=== PATIENT | female | born 1950 | race Caucasian/White ===

== ENCOUNTER 2017-01-15 03:31 | Emergency (ER) | payer OTHER ==
[2017-01-15 03:48] LABS: MANUAL DIFF NEEDED? NO
[2017-01-15] MEDS ORDERED: DUONEB (A & A) ONE (03:51)
[2017-01-15] MEDS ORDERED: DUONEB (A & A) INH ONE (03:51)
[2017-01-15 03:52] LABS: BASO% 0.3 % (0.0-0.8); EOS# 0.22 X1000 (0.0-0.7); EOS% 1.4 % (0.0-10.0); HEMATOCRIT 45.6 % (37.0-47.0); HEMOGLOBIN 14.9 g/dL (12.0-16.0); IMM GRAN# 0.05 X1000 (0.0-0.04); IMM GRAN% 0.3 % (0.0-0.5); LYMPH# 2.43 X1000 (1.2-3.4); LYMPH% 15.4 % (20.5-51.1); MCH 30.2 PG (27-31); MCHC 32.7 g/dL (33-37); MCV 92.3 FL (81-99); MONO# 0.75 X1000 (0.11-0.59); MONO% 4.8 % (1.7-9.3); MPV 9.8 FL (7.4-10.4); NEUT% 77.8 % (42.2-75.2); PLT 278 X1000 (130-400); RBC 4.94 XMIL (4.2-5.4)
--- NOTE | 2017-01-15 03:52 | PROVIDER DOCUMENTATION ---
HPI-Respiratory General - General Chief Complaint: Shortness of Breath Stated Complaint: CHILLS FOR SEVERAL WEEKS Time Seen by Provider: 01/15/17 03:34 Source: patient Allergies/Adverse Reactions: Patient Allergies Allergy/AdvReac Type Severity Reaction Status Date / Time No Known Allergies Allergy Verified 01/15/17 03:36 Home Medications: Home Medication List Medication Instructions Recorded Confirmed Last Taken Type Metformin [Glucophage] 1,000 mg PO BID 11/19/13 01/15/17 09/01/15 21:00 History SIMVAstatin [Zocor] 40 mg PO QHS 11/19/13 01/15/17 09/01/15 21:00 History Clopidogrel Bisulfate [Plavix] 75 mg PO DAILY 11/03/14 01/15/17 09/01/15 08:00 History Levothyroxine [Synthroid] 50 mcg PO QAM 11/03/14 01/15/17 09/01/15 08:00 History Quetiapine [Seroquel] 200 mg PO HS 11/03/14 01/15/17 09/01/15 21:00 History Furosemide [Lasix] 20 mg PO DAILY 06/24/15 01/15/17 09/01/15 08:00 History Cyanocobalamin/Salcaprozat Sod 1,000 mcg PO DAILY 09/02/15 01/15/17 09/01/15 08: 00 History [Eligen B12] Hydroxyzine 25 mg PO BID 09/02/15 01/15/17 09/01/15 21:00 History Rifaximin [Xifaxan] 550 mg PO TID 09/02/15 01/15/17 09/01/15 21:00 History Azithromycin [Zithromax Z-Devendra] 250 mg PO DIRECTED #1 pkg 01/15/17 Unknown Rx Doxycycline Monohydrate 100 mg PO BID #20 tablet 01/15/17 Unknown Rx - History of Present Illness-Resp Quality of Pain: reports: aching Severity in ED: reports: mild Onset/Duration: reports: unsure Timing: reports: still present Context: reports: recent URI Exposure: reports: allergen exposure, irritant gases exposure Cough Quality/Degree: reports: no cough Episode Frequency: no prior episodes Current Respiratory Medication Therapy: Initiated none Modifying Factors: improves with: nothing Associated Symptoms: reports: denies symptoms Similar Symptoms Previously?: Yes Recently seen or treated by another doctor?: Yes Review of Systems - Adult - REVIEW OF SYSTEMS - ADULT Constitutional: reports: no symptoms reported Eyes: reports: no symptoms reported Ears, Nose, Mouth & Throat: reports: no symptoms reported Cardiovascular: reports: no symptoms reported Respiratory: reports: no symptoms reported Gastrointestinal: reports: no symptoms reported Genitourinary: reports: no symptoms reported Musculoskeletal: reports: no symptoms reported Integumentary: reports: no symptoms reported Neurological: reports: no symptoms reported Psychiatric: reports: no symptoms reported Endocrine: reports: no symptoms reported Hematologic/Lymphatic: reports: no symptoms reported Allergic/Immunologic: reports: no symptoms reported All Other Systems: Reviewed and Negative Past History - Adult - PAST MEDICAL HISTORY-ADULT Review of Records: reports: Old Records Reviewed, Nursing Assessment Review, Medications Reviewed, Social history reviewed & non-contributory. Major Childhood Illnesses: reports: denies history Cardiovascular: reports: HTN, hyperlipidemia Respiratory: reports: asthma, COPD Gastrointestinal: reports: denies history Obstetrical/Gynecological: reports: denies history Genitourinary: reports: denies history Musculoskeletal: reports: denies history Neurological: reports: denies history Psychiatric: reports: anxiety, depression Endocrine/Immune: reports: Diabetes, thyroid disorder Other Conditions: reports: other cancer (breast) - PRIOR SURGERIES/PROCEDURES Surgical/Procedure History: reports: cholecystectomy, hysterectomy, BTL, tonsillectomy, other (mastectomy and lap band) - IMMUNIZATION STATUS Childhood Immunizations: See Nurse Assessment Flu Vaccine: See Nurse Assessment - FAMILY HISTORY Family History: reviewed, not pertinent Physical Exam-General - PHYSICAL EXAM-ADULT Initial Vital Signs Reviewed: Yes - CONSTITUTIONAL General Appearance: alert, moderate distress - EYES Eyes: anisocoria - HEAD, EARS, NOSE, MOUTH & THROAT HENMT: TMs normal - NECK Neck: non-tender - RESPIRATORY Respiratory: lungs clear - CARDIOVASCULAR Cardiovascular: normal peripheral pulses - CHEST (BREASTS) Chest/Breast: deferred - GASTROINTESTINAL (ABDOMEN) Abdominal Exam: normal bowel sounds - GENITOURINARY Female Genitalia/Pelvic Exam: deferred - LYMPHATIC Lymphatic: no adenopathy - MUSCULOSKELETAL Back Exam: normal inspection Extremity: normal range of motion - SKIN Integumentary: blanching - NEUROLOGIC 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 These instructions are being provided to you so you can have an understanding of how to care for yourself upon discharge. Upon discharge from the Emergency Department, you are responsible for making arrangements for follow-up care by a physician of your choice. Take all prescribed medications as directed. Return to the Emergency Department immediately for any new or worsening symptoms. You may call the Physician Referral phone number at [phone] to obtain a list of Physicians who are taking new patients. Prescriptions: Doxycycline Monohydrate 100 mg PO BID #20 tablet Azithromycin [Zithromax Z-Devendra] 250 mg PO DIRECTED #1 pkg Referrals: Missy Angel MD [Primary Care Provider] - Instructions: Chronic Obstructive Pulmonary Disease, Znin-[id number], Azithromycin tablets, Doxylamine tablets
[2017-01-15 04:32] LABS: AGAP 21; ALBUMIN 4.3 g/dL (3.5-5.0); ALKALINE PHOSPHATASE 58 U/L (32-104); BUN 20 mg/dL (8-22); CALCIUM 10.1 mg/dL (8.8-10.2); CHLORIDE 97 mmol/L (98-107); CK PROFILE 33 U/L (24-173); COSMO 290; GOT 13 U/L (10-30); GPT 14 U/L (10-36); MAGNESIUM 1.8 mg/dL (1.5-2.7); POTASSIUM 4.3 mmol/L (3.5-5.1); SODIUM 141 mmol/L (136-145); TCO2 23 mmol/L (25-35); TOTAL PROTEIN 7.5 g/dL (6.3-8.3)
[2017-01-15 04:56] LABS: INR 0.95 (0.86-1.15)
[2017-01-15 04:57] LABS: PTT PL 25.6 Seconds (22.6-43.9)
[2017-01-15 05:28] VITALS: BP 141/86
--- NOTE | 2017-01-15 06:07 | EKG Report ---
Test Performed on : 01/15/2017 02:52:24 AM Test Reason : CHEST PAIN Blood Pressure : / mmHG Vent. Rate : 109 BPM Atrial Rate : 109 BPM P-R Int : 160 ms QRS Dur : 094 ms QT Int : 336 ms P-R-T Axes : 009 -80 069 degrees QTc Int : 452 ms Sinus tachycardia. Left axis deviation Incomplete right bundle branch block Septal infarct (cited on or before 21-JUN-2013) Abnormal ECG When compared with ECG of 09-NOV-2014 07:22, LA interval has decreased Vent. rate has increased BY 57 BPM Incomplete right bundle branch block is now present Questionable change in initial forces of Septal leads Unconfirmed Result
--- NOTE | 2017-01-15 08:06 | Diag Imaging Result Document ---
PROCEDURE NAME: CHEST-2 VIEWS - 01/15/2017 FRONTAL AND LATERAL CHEST, TWO VIEWS: COMPARISON: Compared to 06/25/2015. FINDINGS: The lungs are well expanded. The heart is not enlarged. The vessels are not distended. No pleural effusions. There are infiltrates in the mid and lower right lung. Multiple surgical clips overlie the left chest and axilla. IMPRESSION: Right-sided pneumonia. Followup films recommended.
== END 2017-01-15 05:38 | disposition home or self-care (01) ==
LOC: P.ED 03:31
DX: J44.9 Chronic obstructive pulmonary disease, unspecified (principal); R06.02 Shortness of breath; I10 Essential (primary) hypertension; E78.5 Hyperlipidemia, unspecified; E11.9 Type 2 diabetes mellitus without complications; E07.9 Disorder of thyroid, unspecified; Z85.3 Personal history of malignant neoplasm of breast; R68.83 Chills (without fever); Z79.899 Other long term (current) drug therapy; F41.9 Anxiety disorder, unspecified; F32.9 Major depressive disorder, single episode, unspecified; Z90.10 Acquired absence of unspecified breast and nipple; Z98.84 Bariatric surgery status; Z79.02 Long term (current) use of antithrombotics/antiplatelets
CPT/HCPCS: 71020; 80053; 82550; 83735; 83880; 84484; 85025; 85610; 85730; 93005; 94640; 99285

== ENCOUNTER 2017-08-07 07:29 | Inpatient (IN) ==
[2017-08-07] MEDS ORDERED: DUONEB (A & A) INH ONE (07:58)
[2017-08-07 08:03] LABS: MANUAL DIFF NEEDED? NO
[2017-08-07 08:05] LABS: BASO% 0.2 % (0.0-0.8); EOS# 0.18 X1000 (0.0-0.7); EOS% 1.8 % (0.0-10.0); HEMATOCRIT 38.2 % (37.0-47.0); HEMOGLOBIN 12.2 g/dL (12.0-16.0); IMM GRAN# 0.03 X1000 (0.0-0.04); IMM GRAN% 0.3 % (0.0-0.5); LYMPH# 1.01 X1000 (1.2-3.4); LYMPH% 10.3 % (20.5-51.1); MCH 28.8 PG (27-31); MCHC 31.9 g/dL (33-37); MCV 90.1 FL (81-99); MONO# 0.54 X1000 (0.11-0.59); MONO% 5.5 % (1.7-9.3); NEUT% 81.9 % (42.2-75.2); PLT 223 X1000 (130-400); RBC 4.24 XMIL (4.2-5.4)
[2017-08-07 08:21] LABS: PTT PL 33.8 Seconds (22.6-43.9)
[2017-08-07 08:26] LABS: AGAP 12; ALBUMIN 3.4 g/dL (3.5-5.0); ALKALINE PHOSPHATASE 50 U/L (32-104); BUN 10 mg/dL (8-22); CALCIUM 8.8 mg/dL (8.8-10.2); CHLORIDE 98 mmol/L (98-107); COSMO 280; GOT 15 U/L (10-30); GPT 8 U/L (10-36); POTASSIUM 3.5 mmol/L (3.5-5.1); SODIUM 138 mmol/L (136-145); TCO2 28 mmol/L (25-35); TOTAL PROTEIN 7.2 g/dL (6.3-8.3)
[2017-08-07 08:27] LABS: CK PROFILE 706 U/L (24-173)
--- NOTE | 2017-08-07 08:30 | Diag Imaging Result Doc PS360 ---
CHEST-2 VIEWS - 08/07/2017 INDICATION: Fever TECHNIQUE: COMPARISON: 08/06/2017 FINDINGS: Lung volumes are much lower. There is stable to worsening worsening right lower lobe infiltrate. Pulmonary vascularity is somewhat distended. Heart size is top normal. IMPRESSION: Lower lung volumes, otherwise no change from prior. Right lower lobe infiltrate suggesting pneumonia. Electronically signed by Artie Unger 08/07/2017 8:28 AM
--- NOTE | 2017-08-07 08:37 | Diag Imaging Result Doc PS360 ---
EXAM : CT HEAD/C-SPINE W/O CONTRAST HISTORY: Fall TECHNIQUE: CT brain without contrast. CT cervical spine without contrast. Dose reduction protocol. COMPARISON: Brain is compared to 04/19/2015 FINDINGS: Head: No parenchymal hemorrhage. No epidural or subdural hematoma. No subarachnoid hemorrhage. No mass identified on this noncontrasted exam. No hydrocephalus. Mild atrophy. No sinus opacification. Cervical spine: There is scoliosis to the cervical spine. No precervical soft tissue swelling. No subluxation. No fracture. IMPRESSION: Head: No hemorrhage. No injury. Cervical spine: No acute fracture. Electronically signed by Ross Gregory 08/07/2017 8:35 AM
[2017-08-07 08:41] LABS: BE 7.7 mmoll (-3.0-3.0); BLOOD TYPE ARTERIAL; DRAW SITE R RADIAL; O2(CT) 14.7 mL/dL (15.0-23.0); SAMPLE BLOOD; SAO2 88.6 % (95.0-100.0); THB 12.3 g/dL (11.5-17.4)
[2017-08-07] MEDS ORDERED: ZOSYN 3.375 GM in NS 50 ML IV ONE (08:42)
[2017-08-07] MEDS ORDERED: VANCOMYCIN 1 GM/NS 1 GM/250 ML IVPB IV ONE ×2 (08:42→14:00)
[2017-08-07 08:45] LABS: PCO2(98.6) 55 mmHg (35-45); PO2(98.6) 46 mmHg (60-100)
[2017-08-07 08:46] LABS: ALLEN TEST YES; MODALITY CANNULA
--- NOTE | 2017-08-07 08:46 | PROVIDER DOCUMENTATION ---
HPI-Respiratory General - General Chief Complaint: Fever Stated Complaint: Fever/Weak/Fall/Dx Penumonia Time Seen by Provider: 08/07/17 07:35 Source: patient, family Allergies/Adverse Reactions: Patient Allergies Allergy/AdvReac Type Severity Reaction Status Date / Time No Known Allergies Allergy Verified 08/07/17 07:35 Home Medications: Home Medication List Medication Instructions Recorded Confirmed Last Taken Type Metformin [Glucophage] 1,000 mg PO BID 11/19/13 01/15/17 09/01/15 21:00 History SIMVAstatin [Zocor] 40 mg PO QHS 11/19/13 01/15/17 09/01/15 21:00 History Clopidogrel Bisulfate [Plavix] 75 mg PO DAILY 11/03/14 01/15/17 09/01/15 08:00 History Levothyroxine [Synthroid] 50 mcg PO QAM 11/03/14 01/15/17 09/01/15 08:00 History Quetiapine [Seroquel] 200 mg PO HS 11/03/14 01/15/17 09/01/15 21:00 History Furosemide [Lasix] 20 mg PO DAILY 06/24/15 01/15/17 09/01/15 08:00 History Cyanocobalamin/Salcaprozat Sod 1,000 mcg PO DAILY 09/02/15 01/15/17 09/01/15 08: 00 History [Eligen B12] Hydroxyzine 25 mg PO BID 09/02/15 01/15/17 09/01/15 21:00 History Rifaximin [Xifaxan] 550 mg PO TID 09/02/15 01/15/17 09/01/15 21:00 History Azithromycin [Zithromax Z-Devendra] 250 mg PO DIRECTED #1 pkg 01/15/17 Unknown Rx Doxycycline Monohydrate 100 mg PO BID #20 tablet 01/15/17 Unknown Rx Benzonatate [Tessalon Perle] 100 mg PO Q8-12H PRN PRN #30 08/06/17 Unknown Rx capsule - History of Present Illness-Resp Nature of Presenting Problem: Reports pt was treated with oral Abx for PNA and she was seen here yesterday at ER for it as well. Pt states that she completed the Abx, but she could not tell me the name of the Abx. Reports pt had fever with Tmax of 101 at home last night. SOB and fell with possible LOC. Pt is on Plavax. Reports possible heag injury during the fall, but could not tell details. Pt uses home O2 and lives with her brother. Pt looks lethargic, but answer all questions and follow all commands. Quality of Pain: reports: aching Severity in ED: reports: moderate Onset/Duration: reports: last night Timing: reports: still present, constant Context: reports: other (See above) Cough Quality/Degree: reports: moderate Episode Frequency: frequent episodes Current Respiratory Medication Therapy: Initiated albuterol/atrovent inhale, Initiated steroid inhaler, Initiated albuterol Modifying Factors: improves with: oxygen, rest Associated Symptoms: reports: cough, fever/chills, shortness of breath, short of breath Similar Symptoms Previously?: Yes Recently seen or treated by another doctor?: Yes Review of Systems - Adult - REVIEW OF SYSTEMS - ADULT Constitutional: reports: see HPI, fever, fatique Ears, Nose, Mouth & Throat: reports: see HPI, throat pain Cardiovascular: reports: no symptoms reported Respiratory: reports: see HPI, cough, shortness of breath Gastrointestinal: reports: no symptoms reported Genitourinary: reports: no symptoms reported Musculoskeletal: reports: no symptoms reported Integumentary: reports: see HPI Neurological: reports: see HPI, loss of balance, syncope. denies: dizziness/ vertigo, headache/migraines, seizure, slurred speech, tremors All Other Systems: Reviewed and Negative Past History - Adult - PAST MEDICAL HISTORY-ADULT Review of Records: reports: Old Records Reviewed, Nursing Assessment Review, Medications Reviewed, Social history reviewed & non-contributory. Major Childhood Illnesses: reports: denies history Cardiovascular: reports: HTN, hyperlipidemia Respiratory: reports: asthma, COPD Gastrointestinal: reports: denies history Obstetrical/Gynecological: reports: denies history Genitourinary: reports: denies history Musculoskeletal: reports: denies history Neurological: reports: denies history Psychiatric: reports: anxiety, depression Endocrine/Immune: reports: Diabetes, thyroid disorder Other Conditions: reports: other cancer (breast) - PRIOR SURGERIES/PROCEDURES Surgical/Procedure History: reports: cholecystectomy, hysterectomy, BTL, tonsillectomy, other (mastectomy and lap band) - IMMUNIZATION STATUS Childhood Immunizations: See Nurse Assessment Flu Vaccine: See Nurse Assessment - FAMILY HISTORY Family History: reviewed, not pertinent - SOCIAL HISTORY Smoking: denies Substance Use: none/never Alcohol Use Frequency: never Physical Exam-General - PHYSICAL EXAM-ADULT Initial Vital Signs Reviewed: Yes - CONSTITUTIONAL General Appearance: appears well, alert, no apparent distress - EYES Eyes: PERRL/EOMI, pink conjunctivae - HEAD, EARS, NOSE, MOUTH & THROAT HENMT: normocephalic/atraumatic, moist mucous membranes, normal ENT inspection - NECK Neck: non-tender, full range of motion, supple - RESPIRATORY Respiratory: chest non-tender, no pleuratic chest pain, no respiratory distress , no accessory muscle use, decreased breath sounds, wheezing (R> L). negative: crackles, rales, rhonchi - CARDIOVASCULAR Cardiovascular: normal peripheral pulses, regular rate, rhythm - GASTROINTESTINAL (ABDOMEN) Abdominal Exam: normal bowel sounds, non tender, soft, no organomegaly - MUSCULOSKELETAL Back Exam: normal inspection, no CVA tenderness Extremity: normal range of motion, non-tender, normal gait - SKIN Integumentary: normal color, normal turgor, warm/dry - PSYCHIATRIC Psych/Mental Status: normal mood/affect, normal thought content, normal thought process, oriented x 3 Progress - PLAN OF CARE/RESULTS Progress/Plan/Lab Results: Vital Signs - 8 hr 08/07/17 07:30 08/07/17 08:33 08/07/17 09:00 Temperature 99.7 F H 99.0 F Pulse Rate 87 80 81 Respiratory Rate 23 16 18 Blood Pressure 105/73 113/59 107/50 O2 Sat by Pulse Oximetry 90 L 89 L 92 L Laboratory Results - last 24 hr 08/07/17 08/07/17 08/07/17 07:48 07:48 07:48 WBC RBC Hgb Hct MCV MCH MCHC RDW Std Deviation Plt Count MPV Immature Gran % (Auto) Neut % (Auto) Lymph % (Auto) [place] % (Auto) Eos % (Auto) Baso % (Auto) Immature Gran # (Auto) Neut # (Auto) Lymph # (Auto) [place] # (Auto) Eos # (Auto) Baso # (Auto) PT INR APTT (Factor Assay) Specimen Type Sample Site pH pCO2 pO2 HCO3 Base Excess Oxyhemoglobin ABG O2 Sat (Calculated) ABG O2 Saturation ABG Carboxyhemoglobin ABG Methemoglobin Delmer Test A-a O2 Difference Total Hemoglobin Lactate Liter Flow Blood Gas Modality FiO2 % Sodium 138 Potassium 3.5 Chloride 98 Carbon Dioxide 28 Anion Gap 12 BUN 10 Creatinine 0.8 Estimated GFR/1.73 m2 > 60 BUN/Creatinine Ratio 13 Glucose 197 H Calculated Osmolality 280 Calcium 8.8 Magnesium Total Bilirubin 0.30 AST 15 ALT 8 L Alkaline Phosphatase 50 Creatine Kinase 706 H Creatine Kinase Index 0.8 CK-MB (CK-2) 5.43 H Troponin T < 0.010 [id number] Pept Total Protein 7.2 Albumin 3.4 L Globulin 4.0 Albumin/Globulin Ratio 1.0 Plasma Lactate 3.0 H Plasma/Serum Ethyl Alc 08/07/17 08/07/17 08/07/17 07:48 07:48 07:48 WBC 9.83 RBC 4.24 Hgb 12.2 Hct 38.2 MCV 90.1 MCH 28.8 MCHC 31.9 L RDW Std Deviation 15.5 H Plt Count 223 MPV 11.0 H Immature Gran % (Auto) 0.3 Neut % (Auto) 81.9 H Lymph % (Auto) 10.3 L [place] % (Auto) 5.5 Eos % (Auto) 1.8 Baso % (Auto) 0.2 Immature Gran # (Auto) 0.03 Neut # (Auto) 8.05 H Lymph # (Auto) 1.01 L [place] # (Auto) 0.54 Eos # (Auto) 0.18 Baso # (Auto) 0.02 PT 14.0 INR 1.00 APTT (Factor Assay) 33.8 Specimen Type Sample Site pH pCO2 pO2 HCO3 Base Excess Oxyhemoglobin ABG O2 Sat (Calculated) ABG O2 Saturation ABG Carboxyhemoglobin ABG Methemoglobin [place] Test A-a O2 Difference Total Hemoglobin Lactate Liter Flow Blood Gas Modality FiO2 % Sodium Potassium Chloride Carbon Dioxide Anion Gap BUN Creatinine Estimated GFR/1.73 m2 BUN/Creatinine Ratio Glucose Calculated Osmolality Calcium Magnesium Total Bilirubin AST ALT Alkaline Phosphatase Creatine Kinase Creatine Kinase Index CK-MB (CK-2) Troponin T [id number] Pept Total Protein Albumin Globulin Albumin/Globulin Ratio Plasma Lactate Plasma/Serum Ethyl Alc 08/07/17 08/07/17 08/07/17 07:48 07:48 08:14 WBC RBC Hgb Hct MCV MCH MCHC RDW Std Deviation Plt Count MPV Immature Gran % (Auto) Neut % (Auto) Lymph % (Auto) [place] % (Auto) Eos % (Auto) Baso % (Auto) Immature Gran # (Auto) Neut # (Auto) Lymph # (Auto) [place] # (Auto) Eos # (Auto) Baso # (Auto) PT INR APTT (Factor Assay) Specimen Type ARTERIAL Sample Site R RADIAL pH 7.40 pCO2 55 H* pO2 46 L* HCO3 30.6 H Base Excess 7.7 H Oxyhemoglobin 85.4 L* ABG O2 Sat (Calculated) 14.7 L ABG O2 Saturation 88.6 L ABG Carboxyhemoglobin 2.60 H ABG Methemoglobin 1.0 Delmer Test YES A-a O2 Difference 113.0 Total Hemoglobin 12.3 Lactate 1.60 Liter Flow 3.0 Blood Gas Modality CANNULA FiO2 % 32.0 Sodium Potassium Chloride Carbon Dioxide Anion Gap BUN Creatinine Estimated GFR/1.73 m2 BUN/Creatinine Ratio Glucose Calculated Osmolality Calcium Magnesium 1.6 Total Bilirubin AST ALT Alkaline Phosphatase Creatine Kinase Creatine Kinase Index CK-MB (CK-2) Troponin T [id number] Pept 204 Total Protein Albumin Globulin Albumin/Globulin Ratio Plasma Lactate Plasma/Serum Ethyl Alc Orders Category Date Time Status Cardiac Monitoring DIRECTED Care 08/07/17 07:36 Active Finger Stick Blood Sugar (ED) DIRECTED Care 08/07/17 07:36 Active Oxygen Therapy- ED Nursing DIRECTED Care 08/07/17 07:36 Active Saline Loc NOW Care 08/07/17 07:36 Active CHEST-2 VIEWS [RAD] Stat Exams 08/07/17 07:[address] HEAD/C-SPINE W/O CONTRAST [CT] Stat Exams 08/07/17 07:58 Completed ABG [RESP] Routine Lab 08/07/17 08:14 Completed ALCOHOL BLOOD Stat Lab 08/07/17 07:48 Completed BLOOD CULTURE [BLDCUL] Stat Lab 08/07/17 07:35 Ordered CBC WITH ELECTRONIC DIFF [HEME] Stat Lab 08/07/17 07:48 Completed CK PROFILE [SP CHEM] Stat Lab 08/07/17 07:48 Completed COMPREHENSIVE METABOLIC PANEL [CHEM] Stat Lab 08/07/17 07:48 Completed LACTATE, PLASMA [CHEM] Stat Lab 08/07/17 07:48 Completed MAGNESIUM [CHEM] Stat Lab 08/07/17 07:48 Completed PRO B-NATRIURETIC PEPTIDE Stat Lab 08/07/17 07:[address]IME WITH INR PL [COAG] Stat Lab 08/07/17 07:[address] [COAG] Stat Lab 08/07/17 07:48 Completed TROPONIN T Stat Lab 08/07/17 07:[address] W/POSS RFLX CULT [URINALYSIS] Stat Lab 08/07/17 07:36 Uncollected URINE DRUG SCREEN PL Stat Lab 08/07/17 07:36 Uncollected Albuterol 2.5MG/Ipratrop 0.5MG [Duoneb (A & A)] Med 08/07/17 07:58 Discontinued 3 ml INH NOW ONE Piperacillin/Tazobactam [Zosyn] 3.375 gm Med 08/07/17 08:42 Active 0.9% Sodium Chloride Inj [Ns] 50 ml IV NOW Vancomycin 1 gm/Ns Med 08/07/17 08:42 Active 1 gm in 250 ml IV NOW Aerosol Treatments Routine Oth 08/07/17 07:58 Active Aerosol Treatments Stat Oth 08/07/17 07:58 Active Pulse Oximetry Stat Oth 08/07/17 07:36 Active EKG [EKG] Stat Ther 08/07/17 07:36 Ordered Result Diagrams: 08/07/17 07:48 08/07/17 07:48 - XRAY 1 XRAY Study: Chest Impression: Abnormal XRAY Interpretation: RLL infiltrates - CONSULTS/PCP/HOSPITALIST Notification #1 *Consult/PCP/Hospitalist*: Dr. Kaufman Time Discussed: 09:11 Consult Disposition: Will see in ED, Admit Departure - Departure Date of Disposition Decision: 08/07/17 Time of Disposition Decision: 09:11 DIAGNOSIS: RLL pneumonia, Hypoxia Disposition: ADMITTED INPATIENT 09 Certified Medical Emergency: Emergent Condition: Stable Referrals and Follow-Ups: None,PCP [Primary Care Provider] - - Critical Care Note This patient required my direct & personal management of CC.: No Attestation - Physician/ JESÚS Attestation Patient care was provided by Advanced Practice Provider:: No The physician spent face to face time with patient:: Yes Advanced Practice Provider documentation review:: Supervising physician onsite and consulted in the evaluation and care of this patient. The physician did have a face to face encounter with the patient.
[2017-08-07 09:05] LABS: CK INDEX 0.8 (0.0-2.5); CK-MB 5.43 ng/mL (0.0-5.0)
--- NOTE | 2017-08-07 09:42 | EKG Report ---
Test Performed on : 08/07/2017 08:29:15 AM Test Reason : AMS Blood Pressure : / mmHG Vent. Rate : 082 BPM Atrial Rate : 082 BPM P-R Int : 158 ms QRS Dur : 102 ms QT Int : 418 ms P-R-T Axes : 015 -67 041 degrees QTc Int : 488 ms Normal sinus rhythm. Left axis deviation Nonspecific ST and T wave abnormality Prolonged QT Abnormal ECG When compared with ECG of 06-AUG-2017 09:55, (Unconfirmed) Incomplete right bundle branch block is no longer present Unconfirmed Result
--- NOTE | 2017-08-07 10:21 | ED EKG INTERP ---
This chart was entered by Tabatha Stewart Scribe, acting as scribe for Florina Resendiz MD. EKG Interpretation - EKG Time of EKG reading by physician:: 08:29 EKG Read and Signed by:: Florina Resendiz EKG Interpretation (*Must complete 3 of following elements*): Abnormal Rate: 82 Rhythm: nsr [place]: left ST Wave: non-specific ST changes Comments: nonspecific ST and T wave abnormality/prolonged QT Attestation - Physician/ JESÚS Attestation Patient care was provided by Advanced Practice Provider:: No The physician spent face to face time with patient:: Yes Advanced Practice Provider documentation review:: Supervising physician onsite and consulted in the evaluation and care of this patient. The physician did have a face to face encounter with the patient. This chart was documented by the indicated scribe, (Tabatha Stewart Scribe) and accurately reflects the services I performed and decisions made by me, Florina Resendiz MD, as attested by the provider's signature.
[2017-08-07] MEDS ORDERED: FLONASE NAS PRN (13:18)
[2017-08-07] MEDS ORDERED: VANCOMYCIN IV PER PHARMACY MISC SCH (13:30)
[2017-08-07] MEDS: ZOSYN 3.375 GM in NS 50 ML IV SCH ×2 (17:02→22:11)
[2017-08-07] MEDS: CARAFATE PO SCH ×2 (17:02→20:54)
[2017-08-07 17:45] LABS: URINE CULTURE PL NEEDED? NO
[2017-08-07 17:51] LABS: BILIRUBIN URINE NEGATIVE (NEGATIVE); BLOOD URINE NEGATIVE (NEGATIVE); CLARITY CLEAR (CLEAR); COLOR YELLOW; GLUCOSE URINE NEGATIVE (NEGATIVE); LEUKOCYTES URINE 1+ (NEGATIVE); NITRITE URINE NEGATIVE (NEGATIVE); PH URINE 6.5; PROTEIN URINE TRACE mg/dL (NEGATIVE); SP GRAVITY URINE 1.015; URINE SOURCE CLEAN CATCH; UROBILINOGEN URINE NORMAL
[2017-08-07 17:52] LABS: URINE EPITHELIAL CELLS <10 /HPF (<10); URINE RBC <10 /HPF (<10); URINE WBC <10 /HPF (<10)
[2017-08-07 17:53] LABS: UR AMPHETAMINES QUAL NONE DETECTED (NONE DETECT); UR BARBITUATES QUAL NONE DETECTED (NONE DETECT); UR BENZODIAZEPIN QUAL PRESUMPTIVE POSITIVE (NONE DETECT); UR CANNABINOIDS QUAL NONE DETECTED (NONE DETECT); UR COCAINE QUAL NONE DETECTED (NONE DETECT); UR MDMA QUAL NONE DETECTED (NONE DETECT); UR METHADONE QUAL NONE DETECTED (NONE DETECT); UR METHAMPHETAMINE QUAL NONE DETECTED (NONE DETECT); UR OPIATES QUAL NONE DETECTED (NONE DETECT); UR OXYCODONE QUAL PRESUMPTIVE POSITIVE (NONE DETECT); UR PCP QUAL NONE DETECTED (NONE DETECT); UR TCA QUAL NONE DETECTED (NONE DETECT)
--- NOTE | 2017-08-07 20:36 | PROGRESS NOTE ---
DATE: 08/07/2017 SUBJECTIVE: Patient seen and examined by myself. Full note dictated by nurse practitioner. Patient notes that she has had fevers and chills up to 102-103 for the past 2 months off and on. She has been on multiple different antibiotics during this time for pneumonia and urinary tract infection. She presented to the emergency department today again with fever with frequent falling, generalized weakness. She states that she is not feeling well. She has felt as though she was going to pass out. OBJECTIVE: Vital signs: Vital signs are stable. General: She is awake, alert. She is lying in bed. Entire history is per herself. Lungs: Clear although decreased in the bases. GI: Her abdomen is soft, obese. PLAN: Will admit her to the hospital. Continue to treat her for pneumonia. It certainly appear as though she may have a left lower lobe. Will place her on Zyvox and vancomycin and will follow. cc: Randolph Kaufman MD
[2017-08-07] MEDS: ZOCOR PO SCH (20:54)
[2017-08-07] MEDS: COMPAZINE PR SCH ×2 (20:54→21:03)
[2017-08-07] MEDS ORDERED: QUETIAPINE FUMARATE PO SCH (21:00)
[2017-08-07] MEDS ORDERED: SEROQUEL PO SCH (21:00)
[2017-08-07] MEDS: PATIENT'S OWN MED PO SCH (21:02)
[2017-08-08] MEDS: VANCOMYCIN 1,400 MG in NS 250 ML IV SCH ×2 (02:17→15:42)
[2017-08-08] MEDS: ZOSYN 3.375 GM in NS 50 ML IV SCH ×4 (04:34→22:59)
[2017-08-08] MEDS: PRILOSEC PO SCH (06:24)
[2017-08-08 06:37] LABS: AGAP 10; ALBUMIN 3.2 g/dL (3.5-5.0); ALKALINE PHOSPHATASE 48 U/L (32-104); BUN 8 mg/dL (8-22); CALCIUM 8.7 mg/dL (8.8-10.2); CHLORIDE 99 mmol/L (98-107); COSMO 280; GOT 15 U/L (10-30); GPT 10 U/L (10-36); POTASSIUM 3.3 mmol/L (3.5-5.1); SODIUM 140 mmol/L (136-145); TCO2 31 mmol/L (25-35); TOTAL PROTEIN 6.5 g/dL (6.3-8.3)
[2017-08-08 06:38] LABS: HEMATOCRIT 36.2 % (37.0-47.0); HEMOGLOBIN 11.2 g/dL (12.0-16.0); MCH 28.1 PG (27-31); MCHC 30.9 g/dL (33-37); MCV 90.7 FL (81-99); MPV 10.5 FL (7.4-10.4); RBC 3.99 XMIL (4.2-5.4)
[2017-08-08] MEDS: CELEXA PO SCH (08:17)
[2017-08-08] MEDS: PLAVIX PO SCH (08:17)
[2017-08-08] MEDS: ASPIRIN PO SCH (08:17)
[2017-08-08] MEDS: CARAFATE PO SCH ×4 (08:17→20:29)
[2017-08-08] MEDS: ABILIFY PO SCH ×2 (08:17→11:48)
[2017-08-08] MEDS: COMPAZINE PR SCH (08:25)
[2017-08-08] MEDS ORDERED: ABILIFY PO SCH (09:00)
[2017-08-08] MEDS ORDERED: SYNTHROID PO SCH (09:00)
[2017-08-08] MEDS ORDERED: KLOR-CON PO ONE (15:30)
[2017-08-08] MEDS ORDERED: DUONEB (A & A) INH PRN (15:39)
--- NOTE | 2017-08-08 15:55 | PROGRESS NOTE ---
DATE: 08/08/2017 ADDENDUM: SUBJECTIVE: The patient has no focal complaints. OBJECTIVE: Blood pressure 153/67.Cardiovascular: Regular rate. Pulmonary: Diffuse rhonchi. PROBLEMS: 1. Pneumonia right lower lobe. We will continue empiric antibiotics. She is on vancomycin and Unasyn. We will continue pulmonary toilet and follow. Patient is very adamant about trying to go home. 2. Hypokalemia. We will supplement and follow. 3. She is on several psychiatric medications. She is fairly overweight as well but we will continue to follow very closely. 4. Disposition pending clinical improvement. We will continue to monitor. cc: Randall Friend MD
[2017-08-08] MEDS: DUONEB (A & A) INH SCH ×2 (16:02→21:56)
[2017-08-08] MEDS: INCRUSE ELLIPTA INH SCH (16:07)
--- NOTE | 2017-08-08 17:11 | HISTORY AND PHYSICAL ---
CHIEF COMPLAINT: Fever and a fall. HISTORY OF PRESENT ILLNESS: This is a 67-year-old female with a history of dnv-pigtizv-aslsizslz diabetes, hypertension, and left breast cancer. She presented to the emergency room after falling. She was unable to get up. She had to call the fire department for . On their arrival, they did feel that the patient felt warm and she was found to have a fever. She was seen in the emergency room about 24 hours prior to this visit and at that time she was diagnosed with pneumonia, with chest x-ray showing a right lower lobe pneumonia. Evidently, she had a T-max of 101. On arrival, she was lethargic with saturations of 89%-90% on 3 L nasal cannula. After receiving DuoNebs her saturations did increase to 94% and she was admitted for further evaluation and treatment. PAST MEDICAL HISTORY: Hypertension, eml-utzubsg-ilihlyjpy diabetes, hypothyroid, COPD on home O2, and left breast cancer. PAST SURGICAL HISTORY: Cholecystectomy, hysterectomy, mastectomy, lap band with removal, gastric sleeve, and tubal ligation. SOCIAL HISTORY: She denies alcohol, tobacco, or illicit drug use. ALLERGIES: No known drug allergies. HOME MEDICATIONS: A list will be obtained. REVIEW OF SYSTEMS: A 14 point review of systems is discussed with patient with pertinent positives stated in the HPI. She denied chest pain, palpitations, dizziness, syncope. PND, orthopnea, nausea, vomiting, diarrhea, constipation, black or bloody vomitus, black or bloody stools, any hematuria, dysuria, frequency, or urgency. PHYSICAL EXAMINATION: GENERAL: This is a 67-year-old female who is lying in the bed, in no distress. VITAL SIGNS: Blood pressure is 108/57, with a heart rate of 76, respirations are 18, temperature is 98.2 degrees oral with O2 saturations of 94% on 3 L nasal cannula. HEENT: Head is normocephalic, atraumatic. Pupils equal, round, react to light. EOMs are intact. Sclerae are anicteric. Mucous membranes moist. NECK: Supple. Trachea midline. CARDIOVASCULAR: Regular rate and rhythm. S1, S2 appreciated. PULMONARY: Breath sounds are decreased throughout the bases with prolonged expiration. She has no increased work of breathing noted. Chest does rise and fall symmetrically. GASTROINTESTINAL: Abdomen is soft, nontender, nondistended with bowel sounds in all 4 quadrants. EXTREMITIES: No clubbing, cyanosis, or edema. Calves nontender. Pulses are palpable x4. NEUROLOGIC: She is alert and oriented x3. DIAGNOSTICS: Chest x-ray reveals right lower lobe pneumonia. CT of the head and C-spine revealed no hemorrhage, no injury, no acute fracture. LABS: WBC is. 9.8, with hemoglobin 12.2, hematocrit 38.2, and platelets 223,000. Sodium is 138, potassium 3.5, BUN 10, creatinine 0.8, with a glucose of 197. Her CPK is 706, with a troponin of less than 0.010. Urinalysis is essentially negative. Urine drug screen is positive for oxycodone and benzodiazepines. ASSESSMENT AND PLAN: 1. Fall. 2. Right lower lobe pneumonia. 3. Hypokalemia. 4. Bipolar disorder. 5. Chronic obstructive pulmonary disease on home O2 at 3 L. 6. Meh-nliuwvk-ybrcdnblm diabetes. 7. Hypothyroid. PLAN: She will be admitted to the hospital. She has been placed on telemetry which we will continue. We will continue with her supplemental oxygen. We will trend her labs. We will trend electrolytes, replete as appropriate. Blood cultures were drawn in the emergency room. We will continue vancomycin and Zosyn at present. Any further antibiotic changes will be culture driven. We will identify her home medications and continue as appropriate. She will be placed on pattern blood glucose with sliding scale insulin. Further treatments pending hospital course. Dictated by PARUL Jacobs for Randolph Kaufman MD cc: PARUL Jacobs MD
[2017-08-08] MEDS: SEROQUEL PO SCH ×2 (20:29)
[2017-08-08] MEDS: MONISTAT 7 VAG SCH (20:29)
[2017-08-08] MEDS: ZOCOR PO SCH (20:29)
[2017-08-08] MEDS: PATIENT'S OWN MED PO SCH (20:30)
[2017-08-08] MEDS: XANAX PO PRN (21:18)
[2017-08-08] MEDS: PERCOCET-5 PO PRN (21:18)
[2017-08-09] MEDS: VANCOMYCIN 1,400 MG in NS 250 ML IV SCH (01:43)
[2017-08-09] MEDS: DUONEB (A & A) INH SCH ×4 (03:48→21:38)
[2017-08-09] MEDS: ZOSYN 3.375 GM in NS 50 ML IV SCH ×4 (05:44→23:03)
[2017-08-09] MEDS: PRILOSEC PO SCH ×2 (05:44→06:20)
[2017-08-09] MEDS: PERCOCET-5 PO PRN ×2 (05:44→17:11)
[2017-08-09 06:24] LABS: HEMATOCRIT 35.9 % (37.0-47.0); HEMOGLOBIN 11.1 g/dL (12.0-16.0); MCH 27.8 PG (27-31); MCHC 30.9 g/dL (33-37); MPV 9.8 FL (7.4-10.4); RBC 3.99 XMIL (4.2-5.4)
[2017-08-09 07:05] LABS: AGAP 11; BUN 8 mg/dL (8-22); CALCIUM 8.8 mg/dL (8.8-10.2); CHLORIDE 104 mmol/L (98-107); COSMO 283; POTASSIUM 3.3 mmol/L (3.5-5.1); SODIUM 142 mmol/L (136-145); TCO2 28 mmol/L (25-35)
[2017-08-09] MEDS: SYNTHROID PO SCH (08:01)
[2017-08-09] MEDS: XANAX PO PRN ×2 (09:32→21:31)
[2017-08-09] MEDS: ABILIFY PO SCH (09:32)
[2017-08-09] MEDS: CELEXA PO SCH (09:32)
[2017-08-09] MEDS: CARAFATE PO SCH ×4 (09:32→21:31)
[2017-08-09] MEDS: PLAVIX PO SCH (09:32)
[2017-08-09] MEDS: ASPIRIN PO SCH (09:32)
[2017-08-09] MEDS: INCRUSE ELLIPTA INH SCH (11:22)
--- NOTE | 2017-08-09 20:51 | PROGRESS NOTE ---
DATE: 08/09/2017 SUBJECTIVE: Patient denies any current issues. States that she feels ready to go home. Denies any recent fevers, denies any cough, congestion, shortness of breath. OBJECTIVE: Vital signs: Temperature 97.1, pulse 69, respiratory rate 18, blood pressure 129/70. General: Patient is awake, alert, currently in no respiratory distress. Pleasant to talk with. Obese female who is awake, alert. Oriented x3. HEENT: Normocephalic, atraumatic. PILO. Neck: Supple. No JVD. CARDIOVASCULAR: Regular rate and rhythm. Chest: Clear. Nonlabored. Abdomen: Soft. Nondistended. Extremities: Moves all extremities. Neurologic: No focal changes. Skin: Warm and dry. No rashes. ASSESSMENT: 1. Fever. Appears resolved. 2. Right lower lobe pneumonia. 3. Recurrent urinary tract infection. 4. Hypokalemia, resolved. 5. Bipolar disorder. 6. Chronic obstructive pulmonary disease with chronic hypoxemia on 3 L oxygen. 7. Noninsulin-dependent diabetes. PLAN: Patient currently is on vancomycin and Unisom. We will stop vancomycin today. If she continues to be afebrile tomorrow, then we will consider discharging her home. cc: Randolph Kaufman MD
[2017-08-09] MEDS: MONISTAT 7 VAG SCH (21:31)
[2017-08-09] MEDS: ZOCOR PO SCH (21:31)
[2017-08-09] MEDS: SEROQUEL PO SCH ×2 (21:31)
[2017-08-09] MEDS: PATIENT'S OWN MED PO SCH (21:32)
[2017-08-10] MEDS: PERCOCET-5 PO PRN ×2 (02:28→09:59)
[2017-08-10] MEDS: DUONEB (A & A) INH SCH ×2 (04:05→09:37)
[2017-08-10] MEDS: PRILOSEC PO SCH (06:34)
[2017-08-10] MEDS: ZOSYN 3.375 GM in NS 50 ML IV SCH (06:34)
[2017-08-10] MEDS: SYNTHROID PO SCH (06:34)
[2017-08-10] MEDS: XANAX PO PRN (06:35)
[2017-08-10] MEDS: ABILIFY PO SCH (08:09)
[2017-08-10] MEDS: CARAFATE PO SCH ×2 (08:09→09:59)
[2017-08-10] MEDS: PLAVIX PO SCH (08:10)
[2017-08-10] MEDS: CELEXA PO SCH (08:10)
[2017-08-10] MEDS: ASPIRIN PO SCH (08:10)
[2017-08-10 08:21] VITALS: BP 165/93
[2017-08-10] MEDS ORDERED: ZITHROMAX PO SCH (09:00)
[2017-08-10] MEDS ORDERED: OMNICEF PO SCH (09:00)
[2017-08-10] MEDS: INCRUSE ELLIPTA INH SCH (09:37)
--- NOTE | 2017-08-11 04:12 | DISCHARGE SUMMARY ---
ADMISSION DATE: 08/07/2017 DISCHARGE DATE: 08/10/2017 ADDENDUM Patient seen and examined by myself. Full note dictated by nurse practitioner. Patient feeling much better. She is having minimal cough and congestion. She is able to ambulate without any difficulties. On exam, lungs are clear. She is awake, alert. She will be discharged home. Patient will be discharged home on steroids, antibiotics, does not require oxygen at this point. Please see full dictation. cc: Randolph Kaufman MD
--- NOTE | 2017-08-11 11:30 | DISCHARGE SUMMARY ---
ADMISSION DATE: 08/07/2017 DISCHARGE DATE: 08/10/2017 DIAGNOSES: 1. Fall. 2. Right lower lobe pneumonia, improving. 3. Hypokalemia, resolved. 4. Bipolar disorder, aware. 5. Chronic obstructive pulmonary disease on home oxygen at 3 L. 6. Sfz-lzkzsmt-htbdcniwz diabetes. 7. Hypothyroid. DIAGNOSTICS: 08/07/2017, CT of the head and cervical spine revealed no hemorrhage. No injury. Cervical spine: No acute fracture. HOSPITAL COURSE: Ms. Narvaez presented to the emergency room complaining of will fall, stating that she had fever for 24 hours prior, with a T-max of 101 degrees. She was lethargic with saturations of 89% to 90% on 3 L nasal cannula. She was treated in the normal fashion with DuoNeb, steroids to taper, supplemental oxygen, and pulmonary toilet for which she did respond and thankfully, she is ready for discharge. We did trend electrolytes and replete as appropriate during the hospitalization. PHYSICAL EXAMINATION: Cardiovascular: Regular rate and rhythm. S1 and S2 appreciated. Pulmonary: Breath sounds are clear. No increased work of breathing noted. Gastrointestinal: Abdomen is soft, nontender, nondistended with bowel sounds in all 4 quadrants. Extremities: No clubbing, cyanosis, or edema. Calves nontender. Pulses are palpable x4. DISCHARGE MEDICATIONS: Synthroid, Flonase, ProAir p.r.n., Ellipta 1 inhalation daily, Mycostatin powder to groin affected area b.i.d., Plavix 1 daily, aspirin 81 mg daily, Zocor 40 mg at bedtime, Carafate 1 g a.c. and h.s., Ellipta 1 puff daily, Seroquel 600 mg at bedtime, Synthroid 50 mcg daily, Celexa daily, Xanax 1 mg daily as needed, Lasix 2 tabs as directed, Omnicef 300 mg p.o. b.i.d. for 10 days, Zithromax 500 mg daily for 10 days. DISCHARGE VITAL SIGNS: Blood pressure is 160/80, temperature is 98.3 degrees, heart rate is 64, respirations are 20. O2 saturations are 94% to 96% on 3 L nasal cannula. DISCHARGE FOLLOWUP: She is to follow up with her primary care provider in the next 1- 2 weeks, sooner if needed. DISPOSITION: She is being discharged home in stable condition with family members. TIME SPENT: This is a greater than 30 minute discharge. Dictated by PARUL Jacobs for Randolph Kaufman MD cc: PARUL Jacobs MD
== END 2017-08-10 13:13 | disposition home or self-care (01) ==
LOC: P.ED 07:29 → P.MEDSURG 09:30 → SUATTDRO 09:30
PROVIDERS: ATTEND Family Medicine

== ENCOUNTER 2020-01-23 10:40 | Inpatient (IN) ==
[2020-01-23 11:28] LABS: INFLUENZA A NEGATIVE (NEGATIVE); INFLUENZA B NEGATIVE (NEGATIVE)
[2020-01-23] MEDS ORDERED: SOLU-MEDROL IV ONE (12:22)
[2020-01-23] MEDS ORDERED: ROCEPHIN 1 GM in NS 50 ML IV ONE (12:22)
[2020-01-23] MEDS ORDERED: ZITHROMAX PO ONE (12:22)
[2020-01-23] MEDS ORDERED: DUONEB (A & A) INH ONE (12:22)
--- NOTE | 2020-01-23 12:42 | Diag Imaging Result Doc PS360 ---
CHEST-PORTABLE - 01/23/2020 INDICATION: cough/sob COMPARISON: 11/16/2017 FINDINGS: Lung volumes are improved. There has been slight worsening in the density of the right basilar infiltrate. Stable faint infiltrate at the left lung base as well. Stable mild cardiomegaly. IMPRESSION: Bilateral basilar infiltrates right greater than left, consistent with pneumonia or viral infection. Electronically signed by Artie Unger 01/23/2020 12:40 PM
[2020-01-23 12:57] LABS: BASO# 0.02 X1000 (0.0-0.2); BASO% 0.1 % (0.0-0.8); EOS# 0.09 X1000 (0.0-0.7); EOS% 0.6 % (0.0-10.0); HEMATOCRIT 43.5 % (37.0-47.0); HEMOGLOBIN 14.1 g/dL (12.0-16.0); IMM GRAN# 0.03 X1000 (0.0-0.04); IMM GRAN% 0.2 % (0.0-0.5); LYMPH# 1.21 X1000 (1.2-3.4); LYMPH% 8.6 % (20.5-51.1); MCH 29.8 PG (27-31); MCHC 32.4 g/dL (33-37); MONO# 0.92 X1000 (0.11-0.59); MONO% 6.5 % (1.7-9.3); MPV 10.4 FL (7.4-10.4); NEUT# 11.83 X1000 (1.4-6.5); PLT 214 X1000 (130-400); RBC 4.73 XMIL (4.2-5.4)
--- NOTE | 2020-01-23 13:08 | PROVIDER DOCUMENTATION ---
This chart was entered by Sully May Scribe, acting as scribe for Khurram Gama MD. HPI-General Adult - General Chief Complaint: Cough Stated Complaint: DRY COUGH Time Seen by Provider: 01/23/20 11:28 Source: patient Allergies/Adverse Reactions: Patient Allergies Allergy/AdvReac Type Severity Reaction Status Date / Time No Known Allergies Allergy Verified 09/27/17 09:00 Home Medications: Home Medication List Medication Instructions Recorded Confirmed Last Taken Type Albuterol Sulfate [Proair Hfa] 8.5 gm IH PRN PRN 08/07/17 11/16/17 10/13/17 History Alprazolam 1 tab PO Q8HR PRN 08/07/17 11/16/17 10/13/17 History Aripiprazole 1 tab PO DAILY 08/07/17 11/16/17 10/13/17 History Citalopram [Celexa] 1 tab PO DAILY 08/07/17 11/16/17 10/13/17 History Levothyroxine [Synthroid] 1 tab PO DAILY@0600 08/07/17 11/16/17 10/13/17 History Metformin E.r. [Glucophage Xr] 1 tab PO BID 08/07/17 11/16/17 10/13/17 History Oxycodone HCl/Acetaminophen 1 tab PO Q6HR PRN 08/07/17 11/16/17 10/13/17 History [Oxycodon-Acetaminophen 7.5-325] SIMVAstatin [Zocor] 1 tab PO QHS 08/07/17 11/16/17 10/13/17 History Furosemide 20 mg PO DAILY 09/02/17 11/16/17 10/13/17 History Quetiapine Fumarate 400 mg PO QHS 09/02/17 11/16/17 10/13/17 History Potassium Chloride 10 meq PO DAILY 09/27/17 11/16/17 10/13/17 History - History of Present Illness -Gen Adult Nature of Presenting Problems: 69yowf presents to ED cc dry cough, fever, chills and shortness of breath for last 2 days. She has hx of COPD and is on 24/[address] Angel instructions. She denies CP/N/V. Pt is asking to be tested for COVID-19. She is afebrile and nontoxic upon exam. Location of Pain/Injury: reports: generalized Quality of Pain: reports: tightness Severity: reports: mild, moderate Onset/Duration: reports: 2 days ago Timing: reports: still present Context/Activities at Onset: reports: light activity Modifying Factors: worse with: coughing Associated Symptoms: reports: cough, fever/chills, shortness of breath Similar Symptoms Previously?: No Recently seen or treated by another doctor?: No Review of Systems - Adult - REVIEW OF SYSTEMS - ADULT Constitutional: reports: see HPI, chills, fever. denies: fatique Eyes: reports: no symptoms reported Ears, Nose, Mouth & Throat: reports: no symptoms reported Cardiovascular: reports: see HPI. denies: chest pain, palpitations Respiratory: reports: see HPI, cough (dry), shortness of breath Gastrointestinal: reports: see HPI. denies: abdominal pain, nausea, vomiting Genitourinary: reports: no symptoms reported Musculoskeletal: reports: no symptoms reported Integumentary: reports: no symptoms reported Neurological: reports: no symptoms reported Psychiatric: reports: no symptoms reported Endocrine: reports: no symptoms reported Hematologic/Lymphatic: reports: no symptoms reported Allergic/Immunologic: reports: no symptoms reported All Other Systems: Reviewed and Negative Past History - Adult - PAST MEDICAL HISTORY-ADULT Review of Records: reports: Nursing Assessment Review, Medications Reviewed, Social history reviewed & non-contributory. Major Childhood Illnesses: reports: denies history Cardiovascular: reports: HTN, hyperlipidemia Respiratory: reports: asthma, COPD Gastrointestinal: reports: denies history Obstetrical/Gynecological: reports: denies history Genitourinary: reports: denies history Musculoskeletal: reports: denies history Neurological: reports: denies history Psychiatric: reports: anxiety, depression Endocrine/Immune: reports: Diabetes, thyroid disorder Other Conditions: reports: other cancer (breast) - PRIOR SURGERIES/PROCEDURES Surgical/Procedure History: reports: cholecystectomy, hysterectomy, BTL, tonsi llectomy, other (mastectomy and lap band) - IMMUNIZATION STATUS Childhood Immunizations: See Nurse Assessment Flu Vaccine: See Nurse Assessment - FAMILY HISTORY Family History: reviewed, not pertinent - SOCIAL HISTORY Smoking: cigarettes, greater than 1 pack/day Provider spent 3-5 mins advising pt. on dangers of tobacco.: Discussed manners to quit use, and f/u contacts for add'l counseling. Physical Exam-General - PHYSICAL EXAM-ADULT Initial Vital Signs Reviewed: Yes - CONSTITUTIONAL General Appearance: appears well, alert, no apparent distress. negative: anxious, combative - EYES Eyes: PERRL/EOMI, pink conjunctivae. negative: photophobia - HEAD, EARS, NOSE, MOUTH & THROAT HENMT: normocephalic/atraumatic, moist mucous membranes. negative: angioedema - NECK Neck: non-tender, full range of motion, supple, normal inspection. negative: C- spine tenderness - RESPIRATORY Respiratory: chest non-tender, normal breath sounds, no pleuratic chest pain, no respiratory distress, no accessory muscle use, rhonchi (mild,bilateral), wheezing (moderate,bilateral). negative: crackles, rales, stridor - CARDIOVASCULAR Cardiovascular: normal peripheral pulses, no edema, no gallop, no murmur, tachycardia. negative: bradycardia - GASTROINTESTINAL (ABDOMEN) Abdominal Exam: normal bowel sounds, non tender, soft. negative: guarding, rebound - MUSCULOSKELETAL Extremity: normal inspection, normal capillary refill. negative: deformity, swelling - SKIN Integumentary: normal color, normal turgor, warm/dry. negative: diaphoresis, jaundice, rash - PSYCHIATRIC Psych/Mental Status: normal mood/affect, oriented x 3. negative: anxious Progress - PLAN OF CARE/RESULTS Progress/Plan/Lab Results: Vital Signs - 8 hr 01/23/20 10:46 Temperature 99.2 F Pulse Rate 124 H Respiratory Rate 19 Blood Pressure 128/67 O2 Sat by Pulse Oximetry 93 L Laboratory Results - last 24 hr 01/23/20 01/23/20 11:00 11:00 Influenza A (Rapid) NEGATIVE Influenza B (Rapid) NEGATIVE Group A Strep Rapid NEGATIVE Orders Category Date Time Status Cardiac Monitoring DIRECTED Care 01/23/20 12:20 Active NEWS Score 2-4:Order NEWS Lactate Series NOW Care 01/23/20 10:51 Active NEWS Score 2-4:Order NEWS Lactate Series NOW Care 01/23/20 11:04 Active Saline Loc NOW Care 01/23/20 12:20 Active CHEST-PORTABLE [RAD] Stat Exams 01/23/20 12:10 Completed ABG [RESP] Routine Lab 01/23/20 12:20 Ordered CBC WITH ELECTRONIC DIFF [HEME] Stat Lab 01/23/20 12:21 Uncollected COMPREHENSIVE METABOLIC PANEL [CHEM] Stat Lab 01/23/20 12:[address] Stat Lab 01/23/20 11:00 Completed Flu [INFLUENZA SCREEN PL] Stat Lab 01/23/20 11:00 Completed LACTATE, PLASMA [CHEM] Stat Lab 01/23/20 12:21 Uncollected MAGNESIUM [CHEM] Stat Lab 01/23/20 12:21 Uncollected PRO B-NATRIURETIC PEPTIDE Stat Lab 01/23/20 12:22 Uncollected TROPONIN T HIGH SENSITIVITY Stat Lab 01/23/20 12:22 Uncollected URINALYSIS W/POSS RFLX CULT [URINALYSIS] Stat Lab 01/23/20 12:22 Uncollected Albuterol 2.5MG/Ipratrop 0.5MG [Duoneb (A & A)] Med 01/23/20 12:22 Discontinued 3 ml INH NOW ONE Azithromycin [Zithromax] Med 01/23/20 12:22 Discontinued 500 mg PO NOW ONE CefTRIAXONE [Rocephin] 1 gm Med 01/23/20 12:22 Active 0.9% Sodium Chloride Inj [Ns] 50 ml IV NOW Methylprednisolone Sod Succ [Solu-Medrol] Med 01/23/20 12:22 Discontinued 125 mg IV NOW ONE Aerosol Treatments Routine Oth 01/23/20 12:23 Active Aerosol Treatments Stat Oth 01/23/20 12:23 Active EKG [EKG] Stat Ther 01/23/20 12:20 Ordered Result Diagrams: 01/23/20 12:45 - XRAY 1 XRAY: Bilateral XRAY Study: Chest Impression: See EMR Report ( IMPRESSION: Bilateral basilar infiltrates right greater than left, consistent with pneumonia or viral infection. Electronically signed by Artie Unger 01/23/2020 12:40 PM) - CONSULTS/PCP/HOSPITALIST Notification #1 *Consult/PCP/Hospitalist*: Dr. Kaufman Time Discussed: 13:02 Consult Disposition: Admit Departure - Departure Date of Disposition Decision: 01/23/20 Time of Disposition Decision: 13:01 DIAGNOSIS: COPD exacerbation Right lower lobe pneumonia Qualifiers: Pneumonia type: due to unspecified organism Qualified Code(s): J18.1 - Lobar pneumonia, unspecified organism Disposition: ADMITTED INPATIENT 09 Certified Medical Emergency: Emergent Condition: Stable Additional Instructions: ED Follow Up Instructions: You have been treated by a care provider in the Emergency Department. These instructions are being provided to you so you can have an understanding of how to care for yourself upon discharge. Upon discharge from the Emergency Department, you are responsible for making arrangements for follow-up care by a physician of your choice. Take all prescribed medications as directed. Return to the Emergency Department immediately for any new or worsening symptoms. You may call the Physician Referral phone number at [phone] to obtain a list of Physicians who are taking new patients. Referrals and Follow-Ups: None,PCP [Primary Care Provider] - Discharge Education: Tobacco Use Disorder - Critical Care Note This patient required my direct & personal management of CC.: No Attestation - Physician/ JESÚS Attestation Patient care was provided by Advanced Practice Provider:: No The physician spent face to face time with patient:: Yes Advanced Practice Provider documentation review:: Supervising physician onsite and consulted in the evaluation and care of this patient. The physician did have a face to face encounter with the patient. This chart was documented by the indicated scribe, (Sully May Scribe) and accurately reflects the services I performed and decisions made by me, Khurram Gama MD, as attested by the provider's signature.
[2020-01-23] MEDS ORDERED: ZOFRAN IV PRN (13:13)
[2020-01-23] MEDS ORDERED: TYLENOL PO PRN (13:13)
[2020-01-23 13:15] LABS: AGAP 15; ALBUMIN 4.1 g/dL (3.5-5.0); ALKALINE PHOSPHATASE 42 U/L (32-104); BUN 18 mg/dL (8-22); CALCIUM 9.5 mg/dL (8.8-10.2); CHLORIDE 98 mmol/L (98-107); COSMO 285; CREATININE 0.9 mg/dL (0.5-0.9); ESTIMATED GFR > 60; GLUCOSE 157 mg/dL (70-104); GOT 16 U/L (10-30); GPT 11 U/L (10-36); MAGNESIUM 1.6 mg/dL (1.5-2.7); POTASSIUM 4.8 mmol/L (3.5-5.1); SODIUM 140 mmol/L (136-145); TCO2 27 mmol/L (25-35); TOTAL PROTEIN 6.9 g/dL (6.3-8.3)
[2020-01-23] MEDS ORDERED: VANCOMYCIN IV PER PHARMACY MISC SCH (13:15)
[2020-01-23] MEDS ORDERED: VENTOLIN HFA INH ONE (13:36)
[2020-01-23 13:52] LABS: BE 3.3 mmoll (-3.0-3.0); BLOOD TYPE ARTERIAL; HCO3-(ACT) 27.2 mmoll (20.0-26.0); METHB 1.2 % (0.0-1.5); O2(CT) 16.7 mL/dL (15.0-23.0); PCO2(98.6) 41 mmHg (35-45); SAMPLE BLOOD; THB 13.9 g/dL (11.5-17.4); pH(98.6) 7.44 (7.35-7.45)
[2020-01-23 13:57] LABS: PO2(98.6) 49 mmHg (60-100)
[2020-01-23 13:58] LABS: ALLEN TEST YES; MODALITY CANNULA; O2HB 85.6 % (95.0-99.0)
[2020-01-23] MEDS ORDERED: VANCOMYCIN 2,400 MG in NS 500 ML IV SCH (14:00)
[2020-01-23] MEDS: ZOSYN 3.375 GM in NS 50 ML IV SCH ×2 (14:11→20:19)
[2020-01-23 15:15] LABS: URINE SOURCE CLEAN CATCH
[2020-01-23 15:18] LABS: BILIRUBIN URINE NEGATIVE (NEGATIVE); BLOOD URINE NEGATIVE (NEGATIVE); COLOR YELLOW; GLUCOSE URINE NEGATIVE (NEGATIVE); KETONE URINE TRACE mg/dL (NEGATIVE); LEUKOCYTES URINE SMALL (NEGATIVE); NITRITE URINE NEGATIVE (NEGATIVE); PROTEIN URINE 100 mg/dL (NEGATIVE); SP GRAVITY URINE 1.035; TURBIDITY URINE CLEAR (CLEAR); UROBILINOGEN URINE 2 mg/dL (NORMAL)
[2020-01-23 15:20] LABS: UR EPITHELIAL CELLS >10 /HPF (<10); URINE BACTERIA NEGATIVE /HPF; URINE RBC <10 /HPF (<10); URINE WBC <10 /HPF (<10)
--- NOTE | 2020-01-23 17:52 | EKG Report ---
Test Performed on : 01/23/2020 5:02:54 PM Test Reason : sob Blood Pressure : / mmHG Vent. Rate : 082 BPM Atrial Rate : 082 BPM P-R Int : 182 ms QRS Dur : 116 ms QT Int : 420 ms P-R-T Axes : 009 -82 032 degrees QTc Int : 490 ms Normal sinus rhythm. Left axis deviation Incomplete right bundle branch block Septal infarct (cited on or before 31-AUG-2017) Abnormal ECG When compared with ECG of 16-NOV-2017 05:40, QRS duration has increased Confirmed by Josiah Mosquera MD ([id number]) on 01/26/2020 9:22:44 AM
[2020-01-23] MEDS: SOLU-MEDROL IV SCH (20:19)
[2020-01-23] MEDS ORDERED: TUMS PO PRN (20:28)
[2020-01-23] MEDS: COLACE PO SCH (21:23)
[2020-01-23] MEDS: VENTOLIN HFA INH PRN (21:54)
[2020-01-24] MEDS: VENTOLIN HFA INH PRN ×2 (03:44→08:07)
[2020-01-24] MEDS: ZOSYN 3.375 GM in NS 50 ML IV SCH (04:00)
[2020-01-24] MEDS: SOLU-MEDROL IV SCH (04:00)
--- NOTE | 2020-01-24 04:09 | HISTORY AND PHYSICAL ---
CHIEF COMPLAINT: Cough. HISTORY OF PRESENT ILLNESS: Patient is a pleasant 69-year-old female who presented to the emergency department with cough, fevers, chills, shortness of breath for the past 2 days. Notes she has a history of COPD. She is on oxygen 24/7 at home. She states that she is worried about having coronavirus, is asking to be tested. ALLERGIES: No known drug allergies. MEDICATIONS: Albuterol inhaler at home, Xanax q.8 hours, Zyprexa, Celexa, Synthroid, metformin ER, oxycodone, Zocor, Lasix. REVIEW OF SYSTEMS: The patient has increased cough, congestion, increased work of breathing, shortness of breath. States she has had fever at home, although she currently is afebrile. Denies sick contacts. Is on oxygen at home. Denies chest pain, palpitations. Denies dysuria, urinary frequency, urgency, hesitancy, polyuria or polydipsia. Denies skin rashes, weight loss or weight gain. PAST MEDICAL HISTORY: Hypertension, COPD, depression, anxiety, diabetes, hypothyroidism, history of breast cancer. SURGICAL HISTORY: Cholecystectomy, hysterectomy, BTL, tonsillectomy, mastectomy, LAP Band surgery. FAMILY HISTORY: Noncontributory. SOCIAL HISTORY: Patient has a significant history of smoking greater than a pack a day. PHYSICAL EXAMINATION: VITAL SIGNS: Reviewed. Temperature 99 degrees, pulse 124 although currently 90s to 100, respiratory 19, BP 128/67, saturating 93% on 2 L. GENERAL: Patient is awake, pleasant. She is in mild respiratory distress. HEENT: Normocephalic. NECK: Supple. CARDIOVASCULAR: Regular rate. CHEST: Decreased breath sounds bilaterally. No current accessory muscle usage. She is on oxygen. Has moderate wheezing. ABDOMEN: Soft, nondistended, nontender. EXTREMITIES: Moves all extremities. NEUROLOGIC: No changes. ASSESSMENT: 1. Chronic obstructive pulmonary disease with exacerbation. 2. Leukocytosis. 3. Supraventricular tachycardia, improved. 4. Bilateral basilar infiltrates, right greater than left. 5. Diabetes. 6. Hypothyroidism. 7. Depression. PLAN: We are going to continue patient in the hospital. Antibiotics, fluids, oxygen and we will follow. We will restart home medications. cc: Randolph Kaufman MD
[2020-01-24 06:40] LABS: HEMATOCRIT 38.8 % (37.0-47.0); HEMOGLOBIN 12.7 g/dL (12.0-16.0); MCH 29.5 PG (27-31); MCHC 32.7 g/dL (33-37); MCV 90.2 FL (81-99); MPV 10.5 FL (7.4-10.4); RBC 4.3 XMIL (4.2-5.4); WBC 12.01 X1000 (4.8-10.8)
[2020-01-24 06:46] LABS: AGAP 14; ALBUMIN 3.9 g/dL (3.5-5.0); ALKALINE PHOSPHATASE 38 U/L (32-104); BUN 17 mg/dL (8-22); CALCIUM 9.8 mg/dL (8.8-10.2); CHLORIDE 97 mmol/L (98-107); COSMO 279; CREATININE 0.7 mg/dL (0.5-0.9); ESTIMATED GFR > 60; GLUCOSE 189 mg/dL (70-104); GOT 9 U/L (10-30); GPT 8 U/L (10-36); POTASSIUM 3.9 mmol/L (3.5-5.1); SODIUM 136 mmol/L (136-145); TCO2 25 mmol/L (25-35)
[2020-01-24] MEDS ORDERED: PERCOCET-5 PO PRN (07:13)
[2020-01-24] MEDS ORDERED: VITAMIN D PO SCH (07:15)
[2020-01-24 07:59] VITALS: BP 139/52
[2020-01-24] MEDS ORDERED: CELEXA PO SCH (09:00)
[2020-01-24] MEDS ORDERED: ZITHROMAX PO SCH (09:00)
[2020-01-24] MEDS ORDERED: ABILIFY PO SCH (09:00)
[2020-01-24] MEDS ORDERED: NEURONTIN PO SCH (09:00)
[2020-01-24] MEDS ORDERED: KLOR-CON PO SCH (09:00)
[2020-01-24] MEDS ORDERED: PLAVIX PO SCH (09:00)
[2020-01-24] MEDS ORDERED: COZAAR PO SCH (09:00)
[2020-01-24] MEDS ORDERED: GLUCOPHAGE XR PO SCH (09:00)
[2020-01-24] MEDS: COLACE PO SCH (10:39)
[2020-01-24] MEDS ORDERED: SOLU-MEDROL IV SCH (12:00)
--- NOTE | 2020-01-24 13:26 | DISCHARGE SUMMARY ---
ADMISSION DATE: 01/23/2020 DISCHARGE DATE: 01/24/2020 PRIMARY CARE PROVIDER: None. PERTINENT PROCEDURES: Chest x-ray showed bibasilar infiltrates, right greater than left, consistent with pneumonia or bilateral infection. DISCHARGE DIAGNOSES: 1. COPD exacerbation, resolved. 2. Leukocytosis, improving. 3. Supraventricular tachycardia, resolved. 4. Bilateral basilar infiltrates, right greater than left. Patient will be discharged on p.o. medication. 5. Diabetes. Continue home regimen. 6. Hypothyroidism, continue Synthroid. 7. Depression. Continue home medications. 8. COVID-19 rule out. Currently still pending results. Patient will be sent home to self quarantine for 14 days. HOSPITAL COURSE: Briefly, Ms. Narvaez is a 69-year-old female who presented to the ED with cough, fever, chills, shortness of breath for 2 days. Notes history of COPD on home oxygen 29/05. She was worried about coronavirus, was asking to be tested. She was admitted to the hospital for COPD exacerbation, leukocytosis, SVT, as well as bilateral bibasilar infiltrates right greater than left. She was initiated on antibiotics, fluids, oxygen, monitored overnight symptoms have improved and will she will be discharged home to quarantine and follow her COVID-19 results. VITAL SIGNS: At time of her discharge, temperature is 98.6 degrees, heart rate 77, respirations 16, blood pressure 139/52, O2 is 96% on 4 L nasal cannula. DISCHARGE DIET: Diabetic. DISCHARGE MEDICATIONS: 1. Seroquel 600 mg p.o. at bedtime. 2. Simvastatin 40 mg p.o. at bedtime. 3. Abilify 15 mg p.o. daily. 4. Citalopram 40 mg p.o. daily. 5. Colace 300 mg p.o. daily. 6. Gabapentin 300 mg p.o. b.i.d. 7. Glucophage XR 500 mg p.o. b.i.d. 8. Lexapro 20 mg p.o. daily. 9. Losartan 50 mg p.o. daily. 10. Oxycodone acetaminophen 7/325 mg p.o. q. 8 hours. 11. Plavix 75 mg p.o. daily. 12. Potassium chloride 10 mEq p.o. daily. 13. Synthroid 50 mcg p.o. daily. 14. Vitamin D2 q. 7 days. 15. Medrol Dosepak. 16. Omnicef 300 mg p.o. b.i.d. for 10 days. 17. Zithromax 250 mg p.o. daily for 4 days. FOLLOWUP: Ms. Narvaez is being discharged back home where she will self quarantine for 14 days and await the results of her COVID-19. She is take all medications as prescribed. She can return to the ED or call 911 for any worsening of symptoms. Dictated by PARUL Ro for Randolph Kaufman MD cc: Randolph Kaufman MD
--- NOTE | 2020-01-24 16:42 | DISCHARGE SUMMARY ---
ADMISSION DATE: 01/23/2020 DISCHARGE DATE: 01/24/2020 Patient seen and examined by myself, full note dictated by my nurse practitioner. Patient notes that she is feeling tremendously better. She is having minimal cough, no congestion, no shortness of breath, no fevers, and is asking to go home. PLAN: Patient's leukocytosis has improved. Her breathing has improved. We are going to change to oral antibiotics. We are going to discharge her with a Medrol Dosepak. She has nebulized treatments at home. Discussed with her that should symptoms worsen she certainly should consider coming back to the ER. cc: Randolph Kaufman MD
[2020-01-24] MEDS ORDERED: ZOCOR PO SCH (21:00)
[2020-01-25] MEDS ORDERED: SYNTHROID PO SCH (07:00)
== END 2020-01-24 12:35 | disposition home or self-care (01) | DRG 191 ==
LOC: P.ED 10:40 → P.MEDSURG 16:09
PROVIDERS: ATTEND Family Medicine